=== PATIENT | male | born 1985 | race American Indian/Alaskan Native ===

== ENCOUNTER 2016-08-31 07:51 | Emergency (ER) | payer MEDICAID ==
--- NOTE | 2016-08-31 09:51 | Emergency Department Report ---
HPI - General Chief Complaint: Extremity Injury, Upper Time Seen by Provider: 08/31/16 09:36 - HPI HPI: 31-year-old male presents to ED complaining of right hand pain times yesterday. Patient states he was playing with his child and a monkey bar with his child fell and he tried to catch the child and he hit his hand on the floor. Patient states he is right hand is in pain and swollen since yesterday. Patient states no loss of sensation and is able to move and wiggle his fingers but describes pain over fourth and fifth metacarpal bone of the right hand. He denies fevers/chills/nausea/vomiting/abdominal pain/chest pain/shortness of breath or any other problems. ED Past Medical Hx - Past Medical History Previous Medical History?: No - Surgical History Past Surgical History?: No - Social History Smoking Status: Current Every Day Smoker Substance Use Type: Alcohol, Marijuana - Medications Home Medications: Home Medications Medication Instructions Recorded Confirmed Last Taken Type Ibuprofen [Motrin 600 MG tab] 600 mg PO Q8H PRN #30 tablet 09/16/14 Unknown Rx Acetaminophen/Codeine [Tylenol 1 tab PO Q6H PRN #20 tab 08/31/16 Unknown Rx /Codeine # 3 tab] Ibuprofen [Motrin] 800 mg PO Q8HR PRN #40 tablet 08/31/16 Unknown Rx ED Review of Systems ROS: Stated complaint: LFT HAND INJURY Other details as noted in HPI Constitutional: denies: chills, fever Eyes: denies: eye pain, eye discharge, vision change ENT: denies: ear pain, throat pain Respiratory: denies: cough, shortness of breath, wheezing Cardiovascular: denies: chest pain, palpitations Endocrine: no symptoms reported Gastrointestinal: denies: abdominal pain, nausea, diarrhea Genitourinary: denies: urgency, dysuria Musculoskeletal: denies: back pain, joint swelling, arthralgia Skin: denies: rash, lesions Neurological: denies: headache, weakness, paresthesias Psychiatric: denies: anxiety, depression Hematological/Lymphatic: denies: easy bleeding, easy bruising Physical Exam - Physical Exam Vital Signs: Vital Signs 08/31/16 08:23 Temperature 98.2 F Pulse Rate 65 Respiratory 20 Rate O2 Sat by Pulse 99 Oximetry Physical Exam: GENERAL: Alert and oriented x3, no apparent distress, Normal Gait, atraumatic. HEAD: Head is normocephalic and a-traumatic. EYES: Extra ocular muscles are intact. Pupils are equal, round, and reactive to light and accommodation.. NECK: Supple. Non edematous, No carotid bruits. No lymphadenopathy or thyromegaly. No C-spine tenderness LUNGS: Symetrical with respiration, No wheezing, no rales or crackles, CTAB. HEART: S1, S2 present, regular rate and rhythm without murmur, no rubs, no gallops. ABDOMEN: No organomegaly was noted,Positive bowel sounds, soft, and non- distended. . Nontender to palpation on all Quadrants, NO CVA tenderness. EXTREMITIES/MUSCULOSKELETAL: No cyanosis, clubbing, rash, lesions or edema. Full ROM bilaterally. UE Pulses 2+ bilaterally. UE 5+ strength bilaterally, capillary refill normal 2 seconds bilaterally, swelling noted over fourth and fifth metacarpal bones of the right hand, mildly tender to palpation. No loss of sensation, no finger pain NEUROLOGIC: No focal Deficit, Cranial nerves II through XII are grossly intact. No loss of sensation, PSYCHIATRIC: Mood is congruent with affect, denies suicidal or homicidal ideations. SKIN: Warm and dry, No lesions, No ulceration or induration present. ED Course Vital Signs 08/31/16 08:23 Temperature 98.2 F Pulse Rate 65 Respiratory 20 Rate O2 Sat by Pulse 99 Oximetry ED Medical Decision Making - Radiology Data Radiology results: report reviewed, image reviewed RIGHT HAND RADIOGRAPHS INDICATION: Injury. COMPARISON: 09/15/2014. FINDINGS: AP, lateral and oblique right hand radiographs suspicious for a horizontal fracture along the fifth metacarpal base with questionable involvement of adjacent fourth metacarpal base on the frontal view. Diffuse overlying soft tissue swelling along dorsum of the hand. Normal remainder exam without joint involvement. CONCLUSION: Acute nondisplaced fracture along right fifth metacarpal base and questionable at adjacent fourth metacarpal base as well, as described. Overlying soft tissue swelling. Please correlate. Thank you for the opportunity to participate in this patient's care. Transcribed By: RS Dictated By: DARIUS COREA MD Electronically Authenticated By: DARIUS COREA MD Signed Date/Time: 08/31/16 1023 - Medical Decision Making 31-year-old male presents with fifth metacarpal base fracture ED course: he received 60 mg of Toradol IM Right hand x-ray ordered. Right hand x-ray shows: Fifth metacarpal base fracture, nondisplaced, possible fourth metacarpal nondisplaced fracture, mild tissue swelling Discussed findings with patient. Discussed application of right ulnar gutter splint to be placed. Post-splint evaluation: Capillary refill 2 seconds, patient able to wiggle fingers, neurovascularly intact no loss of sensation. Discussed the patient and orthopedic follow-up in 2-3 days. Referrals given. From follow-up from care physician. Vital signs are normal patient is in no acute or respiratory distress. Patient states understanding all discussed and will comply of follow-up. Critical care attestation.: If time is entered above; I have spent that time in minutes in the direct care of this critically ill patient, excluding procedure time. ED Disposition Clinical Impression: Nondisplaced fracture of fifth metacarpal bone of right hand Qualifiers: Encounter type: initial encounter Fracture type: closed Metacarpal location: [facility] Qualified Code(s): S62.346A - Nondisplaced fracture of base of fifth metacarpal bone, right hand, initial encounter for closed fracture Disposition: DISCHARGED TO HOME OR SELFCARE Is pt being admited?: No Does the pt Need Aspirin: No Condition: Stable Instructions: Hand Fracture (ED), Boxer Fracture (ED), RICE Therapy (ED) Additional Instructions: Dr. Covarrubias is the orthopedic. Follow-up with the orthopedic doctor primary care physician referrals. Following she shows as given. Prescriptions: Acetaminophen/Codeine [Tylenol /Codeine # 3 tab] 1 tab PO Q6H PRN #20 tab PRN Reason: Pain Ibuprofen [Motrin] 800 mg PO Q8HR PRN #40 tablet PRN Reason: Pain Referrals: PRIMARY CAREMD [Primary Care Provider] - 3-5 Days CORINA COVARRUBIAS MD [Staff Physician] - 3-5 Days [facility] [Outside] - 3-5 Days [facility] [Outside] - 3-5 Days Forms: Work/School Release Form(ED) Time of Disposition: 10:39
[2016-08-31] MEDS ORDERED: TORADOL IM ONE (09:59)
--- NOTE | 2016-08-31 10:27 | XRay Report ---
RIGHT HAND RADIOGRAPHS INDICATION: Injury. COMPARISON: 09/15/2014. FINDINGS: AP, lateral and oblique right hand radiographs suspicious for a horizontal fracture along the fifth metacarpal base with questionable involvement of adjacent fourth metacarpal base on the frontal view. Diffuse overlying soft tissue swelling along dorsum of the hand. Normal remainder exam without joint involvement. CONCLUSION: Acute nondisplaced fracture along right fifth metacarpal base and questionable at adjacent fourth metacarpal base as well, as described. Overlying soft tissue swelling. Please correlate. Thank you for the opportunity to participate in this patient's care.
== END 2016-08-31 11:08 | disposition home or self-care (01) ==
LOC: ED 07:51
DX: S62.346A Nondisplaced fracture of base of fifth metacarpal bone, right hand, initial encounter for closed fracture (principal); F17.200 Nicotine dependence, unspecified, uncomplicated; F12.10 Cannabis abuse, uncomplicated; W18.30XA Fall on same level, unspecified, initial encounter; Y93.9 Activity, unspecified; Y92.9 Unspecified place or not applicable; Y99.9 Unspecified external cause status
CPT/HCPCS: 29125; 73130; 96372; 99283; J1885

== ENCOUNTER 2016-12-09 04:19 | Emergency (ER) | payer MEDICAID ==
[2016-12-09 04:52] VITALS: BP 94/33
[2016-12-09 05:18] LABS: Basophils % (Auto) 1.1 % (0.0-1.8); Eosinophils % (Auto) 0.7 % (0.0-4.3); Hematocrit 41.3 % (35.5-45.6); Hemoglobin 14.2 gm/dl (11.8-15.2); Mean Corpuscular HGB Conc 34 % (32-34); Mean Corpuscular Hemoglobin 31 pg (28-32); Mean Corpuscular Volume 89 fl (84-94); Platelet Count 180 K/mm3 (140-440); Red Blood Count 4.63 M/mm3 (3.65-5.03); Red Cell Distribution Width 14.4 % (13.2-15.2); White Blood Count 4.5 K/mm3 (4.5-11.0)
[2016-12-09 05:33] LABS: Anion Gap 19 mmol/L; BUN/Creatinine Ratio 18.75; Blood Urea Nitrogen 15 mg/dL (9-20); Calcium 9.1 mg/dL (8.4-10.2); Carbon Dioxide 21 mmol/L (22-30); Chloride 104.6 mmol/L (98-107); Glucose 96 mg/dL (75-100); Potassium 3.6 mmol/L (3.6-5.0); Sodium 141 mmol/L (137-145)
--- NOTE | 2016-12-09 07:18 | XRay Report ---
ROUTINE CHEST, TWO VIEWS: HISTORY: Shortness of breath. The trachea, heart, mediastinal contour, lung tyson and bony thorax are unremarkable. IMPRESSION: Unremarkable chest x-ray.
[2016-12-09 08:27] LABS: Bilirubin,Urine NEG (Negative); Blood,Urine NEG (Negative); Ketones,Urine NEG (Negative); Leukocyte Esterase,Urine NEG (Negative); Mucus,Urine FEW /HPF; Nitrite,Urine NEG (Negative); Protein,Urine <15 mg/dL mg/dL (Negative); Urobilinogen,Urine < 2.0 mg/dL (<2.0)
== END 2016-12-09 05:00 | disposition left against medical advice (07) ==
LOC: ED 04:19
DX: R07.9 Chest pain, unspecified (principal); Z53.21 Procedure and treatment not carried out due to patient leaving prior to being seen by health care provider
CPT/HCPCS: 36415; 71020; 80048; 81001; 84484; 85025; 93005; 93010